=== PATIENT | female | born 1940 | race African-American/Black ===

== ENCOUNTER 2016-06-23 01:41 | Inpatient (IN) | payer OTHER, MEDICARE ==
[~2016-06-23] VITALS: Ht 152.4 cm; Wt 72.6 kg
[~2016-06-23 01:41] MED LIST: ASPIRIN EC81 M1 PO; HYDROCHLOROTHIA25 M1 PO
--- NOTE | 2016-06-23 13:58 | Admission Core Measures ---
Admission Meds I reviewed the following Meds: Current Medications Sig/Malika Start time Last Medication Dose Stop Time Status Admin Ropivacaine 500 ML ONCE ONE 06/23 1115 AC (NAROPIN) 06/25 1314 ON-Q Ball 1 BAG Vancomycin HCl 1,000 MG PRE 06/23 0000 NR Sodium Chloride 250 ML 06/23 2359 (Normal Saline 0.9%) Acute Coronary Syndrome Inclusion Criteria ACS Diagnosis No Inpatient Core Measures LDL Reminder: If No, please order W/I first 24hr of stay Congestive Heart Failure Inclusion Criteria CHF Diagnosis No Cerebrovascular accident Inclusion Criteria CVA/TIA Diagnosis No Inpatient Core Measures Bedside Swallow Eval Reminder: If BSE failed, place ST order Antithrombotic Reminder: Order Antithrombotic Medication by end of day 2 Antithrombotic Reminder: Document Reason Antithrombotic Not ordered by end of day 2 AFIB/Flutter Reminder: If Present, add to problem list AFIB/Flutter Reminder: Order Anticoag Medication for pts with AFIB/Flutter Atherosclerosis Reminder: If Present, add to problem list LDL Reminder: If No, please order W/I first 24hr of stay PT Order Reminder: If No, please order Venous thromboembolism Inpatient Core Measures VTE Risk Factors: Age > 40, Surgery VTE Prophylaxis Ordered Inpt Mech & Pharm No Mech VTE prophylaxis d/t No contraindications No VTE Pharm Prophylaxis d/t No contraindications Inclusion Criteria - Per Current guidelines, there needs to be overlap - treatment for the first 5 days of Warfarin therapy. - Parenteral Anticoagulation (IV or SC) needs to be - given along with Warfarin therapy. VTE Diagnosis No VTE Type NONE VTE Confirmed by (Test) NONE Problem List As ranked by this Provider includes Assessment & Plan 1. Status post total knee replacement, right HOME MEDS Home Med List Aspirin (Ecotrin*) 81 MG TABLET.DR 1 TAB PO DAILY HEART/BLOOD (Reported) Hydrochlorothiazide 25 MG TABLET 1 TAB PO DAILY BP (Reported)
[2016-06-23] MEDS ORDERED: DAILY MULTIPLE1 EACH PO (14:00)
[2016-06-23] MEDS ORDERED: VITAMIN D31000 UNI2 PO (14:00)
--- NOTE | 2016-06-23 14:01 | Discharge Summary ---
Visit Information Visit Dates Admission Date: 06/23/16 Discharge Date: 06/25/16 Hospital Course Course Attending Physician: JIM CABALLERO MD Primary Care Physician: UNKNOWN Hospital Course: Patient admitted to floor following procedure below. Patient ambulated with PT upon arrival to the floor. Patient continued to progress well. Upon discharge patient is afebrile, tolerating diet, pain controlled, ambulating well with rolling walker and PT. Complications: None Allergies: Coded Allergies: latex (Severe, ORAL NUMBNESS 06/17/16) Penicillins (Intermediate, RASH 06/17/16) Sulfa (Sulfonamide Antibiotics) (Intermediate, RASH 06/17/16) Significant Procedures: 06/23/2016 right total knee arthroplasty Disposition Summary Disposition Principal Diagnosis: Right knee primary osteoarthritis, DJD Additional Diagnosis: None Discharge Disposition: home health services Discharge Instructions General Discharge Information Code Status: Full Code Patient's Diet: Resume normal diet Patient's Activity: Weightbearing as tolerated Daily physical therapy Follow-Up Instructions/Appts: Call office to schedule for/confirm appointment Medications at Discharge Discharge Medications: Stop taking the following medications: Aspirin (Ecotrin*) 81 MG TABLET.DR ORAL DAILY Continue taking these medications: Hydrochlorothiazide (Hydrochlorothiazide) 25 MG TABLET 1 Tablet ORAL DAILY Comments: Last Taken: 06/25/16 Time: 9 AM Cholecalciferol (Vitamin D3) 1,000 UNIT TABLET 1 Tablet ORAL DAILY Comments: NOT GIVEN IN HOSPITAL Multivitamin (Daily Multiple Vitamin) 1 EACH TABLET 1 Tablet ORAL DAILY Comments: NOT GIVEN IN HOSPITAL Start taking the following new medications: Hydromorphone HCl (Dilaudid) 2 MG TABLET 1-2 Tablet ORAL Q4-6P as needed for PAIN Qty = 36 No Refills Comments: Last Taken: 06/25/16 Time: 1230 PM Docusate Sodium (Colace) 100 MG CAPSULE 1 Capsule ORAL TWICE DAILY as needed for CONSTIPATION Qty = 30 No Refills Comments: Last Taken: 06/25/16 Time: 9 AM Polyethylene Glycol 3350 (Miralax) 17 GRAM POWD.PACK 1 Packet ORAL DAILY as needed for CONSTIPATION Qty = 14 No Refills Instructions: dissolve in water Comments: Last Taken: 06/25/16 Time: 9 AM Aspirin (Aspirin*) 325 MG TABLET 1 Tablet ORAL TWICE DAILY Qty = 60 No Refills Comments: Last Taken: 06/25/16 Time: 9 AM Copies To: FEDERICO HOWARD,JIM
--- NOTE | 2016-06-23 14:03 | Patient Discharge Instructions ---
Discharge Instructions General Discharge Information You were seen/treated for: Right knee primary osteoarthritis, DJD You had these procedures: 06/23/2016 right total knee arthroplasty Watch for these problems: Redness, swelling, fever, signs of infection. Uncontrolled pain, Excessive bleeding. Decreased range of motion or unable to bear weight. Chest pain, shortness of breath. Call Surgeon to remove: [place] (14 DAYS) Do not soak the wound: Yes No bath, but you may shower: Yes Other wound care: Daily dry dressing changes starting postop day #2 Diet Continue normal diet: Yes Activity Activity Self Limited: Yes Activity Limited to: Weight bear as tolerated Additional ACTIVITY Info: Daily physical therapy Acute Coronary Syndrome Inclusion Criteria At DC or during hospital stay patient has or had the following: ACS DIAGNOSIS No Discharge Core Measures Meds if any: Prescribed or Continued at Discharge Meds if any: NOT Prescribed or Continued at Discharge Congestive Heart Failure Inclusion Criteria At DC or during hospital stay patient has or had the following: CHF DIAGNOSIS No Discharge Core Measures Meds if any: Prescribed or Continued at Discharge Meds if any: NOT Prescribed or Continued at Discharge Cerebrovascular accident Inclusion Criteria At DC or during hospital stay patient has or had the following: CVA/TIA Diagnosis No Discharge Core Measures Meds if any: Prescribed or Continued at Discharge Meds if any: NOT Prescribed or Continued at Discharge Venous thromboembolism Inclusion Criteria VTE Diagnosis No VTE Type NONE VTE Confirmed by (Test) NONE Discharge Core Measures - Per Current guidelines, there needs to be overlap - treatment for the first 5 days of Warfarin therapy. - If discharged on Warfarin prior to 5 days of - overlap therapy, the patient will need to be - assessed for post discharge needs including - *Post discharge parental anticoagulation - *Warfarin and/or parental anticoagulation education - *Follow up date to check INR post discharge At least 5 days overlap therapy as Inpatient No Meds if any: Prescribed or Continued at Discharge Note: Overlap Therapy is Warfarin and Anticoagulant Meds if any: NOT Prescribed or Continued at Discharge
[2016-06-23] MEDS ORDERED: ASPIRIN325 M2 PO (14:05)
[2016-06-23] MEDS ORDERED: DILAUDID2 M1 PO (14:05)
[2016-06-23] MEDS ORDERED: MIRALAX17 G1 PO (14:05)
[2016-06-23] MEDS ORDERED: COLACE100 M1 PO (14:05)
--- NOTE | 2016-06-23 16:29 | Operative Report ---
Operative/Inv Procedure Report Surgery Date: 06/23/16 Name of Procedure: 1. Right Total knee replacement 2. Left knee cortisone injection Pre-Operative Diagnosis: Primary bilateral knee DJD Post-Operative Diagnosis: Same Estimated Blood Loss: 50ml to 100ml Surgeon/[employer]: FEDERICO HOWARD,JIM Roque Anesthesia: block Operative/Procedure Note Note: Description of Procedure: The patient was taken to the operating room and positively identified. After induction of spinal anesthesia and administration of appropriate pre-operative antibiotics, the patient was positioned supine on the operating room table and all bony prominences were well padded. The left knee was prepped sterilely and injected with a mixture of 2 mL of Depo- Medrol and 8 mL of half percent Marcaine. A Band-Aid was placed over the injection site. A well-padded pneumatic tourniquet was placed on the right upper thigh. After performing a surgical timeout, the right lower extremity was prepped and draped in the usual sterile fashion. After exsanguination with Esmarch the tourniquet was inflated to 250mm of mercury. A standard medial parapatellar approach was made to the knee. This was carried down through skin and subcutaneous tissue to the level of the fascia. Meticulous hemostasis was maintained with Bovie electrocautery. The extensor mechanism and patellar retinaculum were opened sharply and the patella was everted. The infrapatellar fat was resected in order to improve exposure. Osteophytes were trimmed from the patella and femoral condyles and the patella was re-everted and tucked laterally. A medial release was performed and the cruciate ligaments were resected. The tibia was then subluxed anteriorly. Utilizing the appropriate extra-medullary guide, the proximal tibia was trimmed perpendicular to the long axis of the tibial shaft. Attention was then turned to the femur. After opening the medullary canal, the distal femoral cut was made in 6 degrees of valgus utilizing the appropriate intra-medullary guide. The extension gap was checked and found to be appropriate. The femur was then sized and the remainder of the femoral cuts were made with a size 3 4-in-1 femoral cutting guide. The flexion gap was checked and found to be symmetric and appropriate. The knee was then trialed with a size 3 femoral component, a size 3 tibial component and a size 9 mm polyethylene insert. The patella was not resurfaced due to its excellent preoperative condition. This yielded excellent range of motion, stability and patellar tracking. All trial components were removed and the knee was copiously irrigated with sterile saline. All components were cemented into place with Jyoti Simplex cement. All the components were of the Jyoti Triathlon knee system of the above stated sizes. The knee was again irrigated after cementation. The extensor mechanism and patellar retinaculum were repaired using interrupted #1 vicryl suture. The skin was re-approximated with 2-0 vicryl and closed with suzanna. A sterile dressing was applied, the tourniquet was deflated, the patient was awakened and taken to the recovery room in satisfactory condition.
--- NOTE | 2016-06-23 19:53 | PN- Orthopedic ---
Subjective Subjective: Post op check Awake, alert, no complaints Denies nausea pain well controlled at this time Objective Vital Signs and I&Os T 98 bp 112/46 hr 71 regular rr 16 sat 97% 3lnc sandoval good output Physical Exam: General: alert and oriented times three Chest: clear anteriorly bilaterally, RRR abd: soft, good bs Ext: warm, no edema, positive sensate, no calf tenderness Wound: dressed, dry, on Q in place Assessment/Plan Assessment/Plan 75 yo female s/p R TKR sandoval overnight - dc in am pain management pt in am - wbat Core Measures/Miscellaneous Sandoval Catheter Date In: 06/23/16 Still Needed? Yes (24 hrs post op) Venous Thromboembolism VTE Risk Factors: Age > 40, Surgery VTE Contraindications: No Contraindications VTE Prophylaxis Ordered Inpt: Mech & Pharm VTE Diagnosis: No VTE Type: NONE VTE Confirmed by (Test): NONE Beta Poncho Is Beta Poncho a Home Med? No Antibiotics Is Patient on Antibiotics? Yes (24 hrs post op)
[2016-06-23 20:15] VITALS: BP 140/64
[2016-06-23 22:48] VITALS: BP 100/60
[2016-06-24 00:05] VITALS: BP 108/60
[2016-06-24 02:11] VITALS: BP 116/62
[2016-06-24 06:52] VITALS: BP 122/60
[2016-06-24 08:22] LABS: ABSOLUTE BASOPHIL COUNT 0 /CUMM (0.0-0.2); ABSOLUTE EOSINOPHIL COUNT 0 /CUMM (0.0-0.7); ABSOLUTE GRANULOCYTE CT 5.9 /CUMM (1.4-6.5); ABSOLUTE LYMPH COUNT 0.9 /CUMM (1.2-3.4); ABSOLUTE MONOCYTE COUNT 0.4 /CUMM (0.10-0.60); BASOPHIL % 0.3 % (0.0-2.0); EOSINOPHIL % 0.1 % (0-5); GRANULOCYTE % 81.4 % (42.2-75.2); HEMATOCRIT 30.2 % (37-47); MEAN CORPUSCULAR HGB 20.6 PG (27.0-31.0); MEAN CORPUSCULAR HGB CONC 32.2 G/DL (33.0-37.0); MEAN PLATELET VOLUME 9.2 FL (7.4-10.4); PLATELET COUNT 164 /CUMM (130-400); RBC DISTRIBUTION WIDTH 15.4 % (11.5-14.5); RED BLOOD CELL CT 4.71 /CUMM (4.20-5.40); WHITE BLOOD CELL COUNT 7.3 /CUMM (4.8-10.8)
--- NOTE | 2016-06-24 08:46 | PN- Orthopedic ---
Subjective Subjective: No overnight events reported, feeling some pain presently. Has on Q, has yet to ambulate. Has sandoval cathether in place. Denies chest pain, shortness of breath and difficulty breathing. Denies nausea and vomitting, has been tolerating po. Objective Vital Signs and I&Os Vital Signs Date Time Temp Pulse Resp B/P Pulse O2 O2 Flow FiO2 Ox Delivery Rate 06/24 0652 99.7 85 18 122/60 96 Room Air 06/24 0211 97.9 80 18 116/62 95 Room Air 06/24 0005 97.9 72 18 108/60 95 Room Air 06/23 2248 72 100/60 06/23 2014 98.4 70 20 140/64 95 Room Air Intake & Output 06/24 1600 06/24 0800 06/24 0000 06/23 1600 06/23 0800 06/23 0000 Intake Total 720 340 Output Total 425 Balance 295 340 Intake, IV 600 100 Intake, Oral 120 240 Output, Urine 425 Patient 160 lb Weight Physical Exam: General: Alert and oriented x3, no acute distress Cardiac: RRR, s1s2 Pulmonary: Bilateral lung sounds clear to auscultation Abdomen: Non-tender, non-distended Extremites: Moves all extremities, distal sensation intact. Motor 5/5 in plantar and dorsi flexion. Skin warm and well perfused. No peripheral edema. DP pulses palpable bilaterally. Bilateral calves soft and non-tender Surgical site: Right knee. Dressing dry and inact. On Q in place with no evidence of leak Assessment/Plan Assessment/Plan This is a 75 year old female, POD 1, s/p right total knee replacement -OOB with PT today, wbat -D/C sandoval catheter -D/C iv fluids -Continue current pain regimen -Continue diet as tolerated -GI PPX ppi -Bowel regimen: Colace and miralax -DVT ppx asa bid Core Measures/Miscellaneous Sandoval Catheter Date In: 06/23/16 Venous Thromboembolism VTE Risk Factors: Age > 40, Surgery VTE Contraindications: No Contraindications VTE Prophylaxis Ordered Inpt: Mech & Pharm VTE Diagnosis: No VTE Type: NONE VTE Confirmed by (Test): NONE Beta Poncho Is Beta Poncho a Home Med? No Antibiotics Is Patient on Antibiotics? Yes (24 hrs post op)
[2016-06-24 09:15] LABS: MEAN CORPUSCULAR VOLUME 64.1 FL (81.0-99.0)
[2016-06-24 10:42] VITALS: BP 120/80
[2016-06-24 14:02] VITALS: BP 100/60
[2016-06-24 21:21] VITALS: BP 130/66
[2016-06-25 06:18] VITALS: BP 112/60
--- NOTE | 2016-06-25 07:28 | PN- Orthopedic ---
Subjective Subjective: POD#2 S/P RIGHT TKA 3 PAIN IMPROVED WITH PAIN MEDS MINH CP SOB, NO N+V WITH DIET Objective Vital Signs and I&Os Vital Signs Date Time Temp Pulse Resp B/P Pulse O2 O2 Flow FiO2 Ox Delivery Rate 06/25 0618 99.1 81 20 112/60 95 Room Air 06/24 2121 97.9 77 20 130/66 96 06/24 1402 98.8 67 18 100/60 94 Room Air 06/24 1042 98.2 68 20 120/80 96 Room Air Intake & Output 06/25 0800 06/25 0000 06/24 1600 06/24 0800 06/24 0000 06/23 1600 Intake Total 200 240 720 720 340 Output Total 300 500 200 425 Balance -100 -260 520 295 340 Intake, IV 0 600 100 Intake, Oral 200 240 720 120 240 Number 0 0 Bowel Movements Output, Urine 300 500 200 425 Patient 160 lb Weight Physical Exam: CV: RRR LUNGS; CLEAR ABD: SOFT, +BS EXT: DRSG CHANGED, WOUND C/D/I NO CALF TENDERNESS BILAT DISTAL CMS INTACT Assessment/Plan Assessment/Plan ORTHO STABLE PLAN OOB WITH PT/STAIRS ASA FOR DVT PROPHYLAXIS PLAN FOR HOME D/C TODAY Core Measures/Miscellaneous Castellanos Catheter Date In: 06/23/16 Venous Thromboembolism VTE Risk Factors: Age > 40, Surgery VTE Contraindications: No Contraindications VTE Prophylaxis Ordered Inpt: Mech & Pharm VTE Diagnosis: No VTE Type: NONE VTE Confirmed by (Test): NONE Beta Poncho Is Beta Poncho a Home Med? No Antibiotics Is Patient on Antibiotics? Yes (24 hrs post op)
== END 2016-06-25 13:46 | disposition home health service (06) | DRG 470 ==
LOC: SDA 01:41 → 2NA 01:41
PROVIDERS: Physician Assistant Surgical; ADMIT Orthopaedic Surgery
PROC: 3E0U33Z Introduction of Anti-inflammatory into Joints, Percutaneous Approach (ICD-10-PCS; principal; 2016-06-23)
PROC: 0SRC0J9 Replacement of Right Knee Joint with Synthetic Substitute, Cemented, Open Approach (ICD-10-PCS; principal; 2016-06-23)
PROC: 3E0U3BZ Introduction of Anesthetic Agent into Joints, Percutaneous Approach (ICD-10-PCS; principal; 2016-06-23)
DX: M17.0 Bilateral primary osteoarthritis of knee (principal); I10 Essential (primary) hypertension; D56.9 Thalassemia, unspecified
CPT/HCPCS: 2NASP; 36415; 82436; 87086; 88305; 97001-GP; 97110-GO; 97116-GO; 97530-GO; C1713; J0131; J1030; J2795; J3370; J7040

== ENCOUNTER → 2016-08-25 | Day surgery (SDC) | payer OTHER, MEDICARE ==
[~2016-08-25] VITALS: Ht 152.4 cm; Wt 72.6 kg
[~2016-08-25] MED LIST changes: +ASPIRIN325 M2 PO; +COLACE100 M1 PO; +DAILY MULTIPLE1 EACH PO; +DILAUDID2 M1 PO; +MIRALAX17 G1 PO; +VITAMIN D31000 UNI2 PO
--- NOTE | 2016-08-25 14:57 | Operative Report ---
Operative/Inv Procedure Report Surgery Date: 08/25/16 Name of Procedure: Right knee manipulation under anesthesia Pre-Operative Diagnosis: Right knee stiffness Post-Operative Diagnosis: Same Estimated Blood Loss: none Surgeon/Federal Appellate Clerk: JIM CABALLERO MD Anesthesia: local monitored anesthesi Operative/Procedure Note Note: The patient was taken to the operating room and positively identified. She was positioned on the operating room table and all bony prominences well-padded. Anesthesia was induced. Prior to manipulation her flexion passively was to about 80. Utilizing gentle but firm pressure over the tibial tubercle , the knee was flexed. Audible release of scar tissue was noted. After manipulation the knee could be flexed to beyond 120. Passive flexion with gravity was about 100. The knee was then prepped sterilely and injected with a mixture of 2 mL of Depo-Medrol and 8 mL of half percent Marcaine. A Band-Aid was placed over the injection site. The patient was awakened and taken to the recovery room in satisfactory condition.
== END ==
LOC: STS 02:43
DX: M24.661 Ankylosis, right knee (principal); Z96.651 Presence of right artificial knee joint; I10 Essential (primary) hypertension; D56.9 Thalassemia, unspecified; M19.90 Unspecified osteoarthritis, unspecified site; Z79.82 Long term (current) use of aspirin
CPT/HCPCS: J0690; J1030; J2250